=== PATIENT | female | born 1995 | race Caucasian/White ===

== ENCOUNTER 2023-10-07 20:43 | Emergency (ER) | payer SELFPAY ==
[~2023-10-07] VITALS: Ht 149.9 cm; Wt 79.4 kg
[2023-10-07] MEDS ORDERED: PROCHLORPERAZINE EDISYLATE 10 MG/2 ML VIAL IVP ONE (22:30)
[2023-10-07] MEDS ORDERED: diphenhydrAMINE HCL 50 MG/ML VIAL IV ONE (22:30)
[2023-10-07] MEDS ORDERED: KETOROLAC TROMETHAMINE 15 MG/ML VIAL IV ONE (22:30)
[2023-10-07] MEDS ORDERED: METOCLOPRAMIDE HCL 10 MG/2 ML VIAL IV ONE (22:30)
[2023-10-07] MEDS ORDERED: IV NS 0.9% 1,000 ML BAG IV ONE (22:30)
[2023-10-07] MEDS ORDERED: diphenhydrAMINE HCL 50 MG/ML VIAL ONE (22:51)
[2023-10-07] MEDS ORDERED: PROCHLORPERAZINE EDISYLATE 10 MG/2 ML VIAL ONE (22:51)
[2023-10-07] MEDS ORDERED: KETOROLAC TROMETHAMINE 15 MG/ML VIAL ONE (22:51)
[2023-10-07] MEDS ORDERED: METOCLOPRAMIDE HCL 10 MG/2 ML VIAL ONE (22:52)
[2023-10-07] MEDS ORDERED: METO-295 PO (23:56)
[2023-10-07] MEDS ORDERED: PROC-11 PO (23:56)
[2023-10-07] MEDS ORDERED: KETO10TA2 PO (23:56)
[2023-10-08 00:22] VITALS: BP 123/72; TEMP 97.9; O2SAT 99
== END 2023-10-08 00:23 | disposition home or self-care (01) ==
LOC: ER 20:43
DX: G43.909 Migraine, unspecified, not intractable, without status migrainosus (principal); Z79.899 Other long term (current) drug therapy
CPT/HCPCS: 99284; 96374; 96375; 96361; J0780; J1200; J2765; J7030; J1885